=== PATIENT | female | born 1945 | race Caucasian/White ===

== ENCOUNTER 2023-09-27 18:04 | Emergency (ER) | payer MEDICARE, OTHER, SELFPAY ==
[2023-09-27 18:10] VITALS: BP 137/80
[2023-09-27 18:25] LABS: % Basophils 0.9 % (0-2); % Eosinophils 1.9 % (0-6); % Immature Granulocytes 0.3 % (0-0.5); % Lymphocytes 20.7 % (20.5-51.1); % Monocytes 9.7 % (1.7-9.3); % Neutrophils 66.5 % (42.2-75.2); Absolute Basophils 0.1 10^3/uL (0-0.2); Absolute Eosinophils 0.1 10^3/uL (0-0.7); Absolute Lymphocytes 1.4 10^3/uL (1.2-3.4); Absolute Monocytes 0.7 10^3/uL (0.1-0.6); Absolute Neutrophils 4.5 10^3/uL (1.4-6.5); Hematocrit 40.7 % (37.0-47.0); Hemoglobin 13.9 g/dL (12.0-16.0); Mean Corp Hgb Conc. 34.2 g/dL (33.0-37.0); Mean Corpuscular Hgb 27.7 pg (27.0-31.0); Mean Corpuscular Volume 81.1 fL (81.0-99.0); Mean Platelet Volume 9.7 fL (7.4-10.4); Nucleated Red Blood Cells % 0 %; Platelet Count 279 10^3/uL (130-400); Red Blood Cell Count 5.02 10^6/uL (4.20-5.40); Red Cell Dist. Width 13.6 % (11.5-14.5); White Blood Cell Count 6.8 10^3/uL (4.8-10.8)
[2023-09-27 18:40] VITALS: BP 118/55
[2023-09-27 18:46] LABS: ALT (SGPT) 17 U/L (0-35); AST (SGOT) 21 U/L (14-36); Albumin 3.8 g/dl (3.5-5.0); Alkaline Phosphatase 83 U/L (38-126); Blood Urea Nitrogen 21 mg/dl (7-17); Calcium 9.2 mg/dl (8.4-10.2); Carbon Dioxide 24 mmol/L (22-30); Chloride 104 mmol/L (98-107); Glucose 155 mg/dl (70-99); Potassium 4.1 mmol/L (3.5-5.1); Sodium 137 mmol/L (135-145); Total Bilirubin 0.4 mg/dl (0.2-1.3); Total Protein 6.3 g/dl (6.3-8.2); eGFR > 60.00
[2023-09-27 19:00] VITALS: BP 107/63
[2023-09-27 19:08] VITALS: BMI 28.5
--- NOTE | 2023-09-27 19:11 | ED.GENMED ---
History of Present Illness
General
Chief Complaint: Change in Mental Status
Source: patient and spouse
Exam Limitations: dementia
Time Seen by Provider: 09/27/23 18:24
Travel History
Have you had any contact with someone who has COVID-19?: No
Do you have any symptoms of coronavirus? Fever > 100 degrees, chills, cough, shortness of breath, sore throat, loss of taste or smell, muscle aches, or headache?: No
History of Present Illness
History of Present Illness:
This is a 78 year old female that is brought in by her with increased confusion. state that she is not acting normal today. States that she is not answering him when he ask questions and it take her a long time to think about it
before she answers. States that she is [place]. States that there is an activity that they do every Wednesday and she asked him today if they had ever been there before. States that this is worse then normal. Denies any fever, chills, chest pain, SOB,
abd pain, nausea, vomiting, diarrhea, headache, dizziness, urinary burning.
Past History
Past History
ED Past Medical History: Hypercholesterolemia, Hypothyroidism and Other (Osteoarthritis, Alzheimer's, back pain, Hemorrhoids, Ovarian cyst, UTI, Fracture right ankle)
ED Past Surgical History: Orthopedic (ORIF right wrist, ) and Other (Breast cyst removed)
Social History
Tobacco: Non-smoker
Alcohol: None
Drug: None
Personal:
Living: with family
Employment: Retired
Family History
Family History: Other (Noncontributory)
Review of Systems
Review of Systems
All Other Systems: ROS reviewed and negative except as documented in HPI and ROS
Constitutional: Reports fatigue; Denies fever or chills
EENT: Reports no symptoms
Respiratory: Reports no symptoms; Denies cough or trouble breathing
Cardiac: Reports no symptoms; Denies chest pain
ABD/GI: Reports no symptoms; Denies abdominal pain, nausea, vomiting or diarrhea
: Reports no symptoms; Denies dysuria, frequency or urgency
Musculoskeletal: Reports no symptoms
Skin: Reports no symptoms
Neurological: Reports no symptoms; Denies dizzy or headache
Psychiatric: Reports no symptoms
Phy Exam
General Physical Exam
General Presentation: no apparent distress
General age: appears stated age
General Skin: warm and dry
General Habitus: elderly
General Mental: usual mental status (Patient is able to answer questions)
ENT Exam
ENT Exam: TM's normal, pharynx normal and neck supple
Eye Exam
Eye Exam: EOMI
Cardiovascular Exam
Cardiovascular Exam: regular rate/rhythm, no edema and normal peripheral pulses
Pulmonary Exam
Pulmonary Exam: lungs clear, no respiratory distress, no rales, chest non tender, no crackles, no rhonchi, no wheezing and no cough
Gastrointestinal Exam
Gastrointestinal Exam: normal bowel sounds, non tender, soft, no organomegaly, no pulsatile mass and non distended
Musculoskeletal Exam
Musculoskeletal Exam: full ROM and no edema
Skin Exam
Skin Exam: normal color, warm/dry, no rash and no petechia
Psychiatric Exam
Psychiatric Exam: normal mood/affect
Course
Orders/Labs/Results
Orders:
Orders
09/27/23 18:21
CMP [Comprehensive Metabolic Panel] Urgent
Complete Blood Count/With Diff Urgent
09/27/23 19:11
CT Head W/o Iv Contrast Urgent
Comment:
Reason For Exam: Increased confusion
0.9% Sodium Chloride 500 ml [Nss] 500 ml IV BOLUS
09/27/23 19:20
Electrocardiogram (*1) Urgent
Reason for Study: Fatigue / Weakness
EKG- Treatment ONCE
09/27/23 20:17
Straight cath- Treatment ONCE
09/27/23 20:38
Urinalysis Reflex To Culture Urgent
Date Specimen was Collected: 09/27/23
Time Specimen was Collected: 19:13
Urine Microscopic Reflex Cult Urgent
Urine Culture Urgent
MALACHI Source: U
Specimen Description:
Date Specimen was Collected: 09/27/23
Time Specimen was Collected: 19:13
Abnormal Lab Results
09/27/23 09/27/23
18:21 20:38
Absolute Monos (auto) 0.7 H 10^3/uL
(0.1-0.6)
Monocytes % 9.7 H %
(1.7-9.3)
BUN 21 H mg/dl
(7-17)
Glucose 155 H mg/dl
(70-99)
Urine Bilirubin 1+ A
(Negative)
Leukocyte Esterase Rfl Trace A
(Negative)
Urine Bacteria (Reflex) Moderate A
(Negative)
09/27/23 18:21
09/27/23 18:21
Dehydration. Glucose nonfasting. Urine negative for infection.
Vital Signs
Initial and Last Documented VS:
Initial Vital Signs
Temp Pulse Resp BP Pulse Ox
98.1 F 93 18 137/80 94
09/27/23 18:10 09/27/23 18:10 09/27/23 18:10 09/27/23 18:10 09/27/23 18:10
Last Documented Vital Signs
Temp Pulse Resp BP Pulse Ox
98.1 F 79 23 107/63 94
09/27/23 18:10 09/27/23 19:00 09/27/23 19:00 09/27/23 19:00 09/27/23 19:00
MDM/Problems Addressed
Differential Diagnosis Includes:
worsening of Dementia. UTI
MDM/Problems Addressed:
This is a 78 year old female that comes in with . states that today she is just not herself. State that she is slow to answer and doesn't remember things.
will check labs, Urine and give IV fluids. Will also get CT head.
Back into see patient and . Explained that her blood work showed some dehydration. Her urine is negative for infection and her CT of the head is negative for any acute process. Patient to increase her water intake to 8-8oz glasses daily.
Follow up with the family doctor. Explained to that this may just be worsening of the disease process. Return with any concerns.
Chronic conditions affecting care:
Dementia
Acute Exacerbation and/or Progression of Chronic Illness:
Dementia
*Radiology
Radiology exam reviewed: radiology read reviewed (CT head-No acute intracranial abnormality. )
*Pulse Oximetry
Patient hypoxic: no
*Director Of Restaurant Interpretation
Rate: normal
Heart Rate: 68
Rhythm: sinus
*Critical Care Note
Total Time (30-74mins, 75-104mins- exclusive of procedures): Not Applicable
ED Attending Note
-
Portions of this chart may have been created with voice recognition software.� Occasional wrong word or��sound alike� substitutions may have occurred due to the inherent limitations of voice recognition software.
Discharge Plan
Departure
Patient Disposition: Home (Routine Discharge)
Date of Disposition: 09/27/23
Time of Disposition: 21:23
Patient with high blood pressure during this ER visit?: No
Condition: Good
Covid-19: Not Applicable
Discharge Problem:
Dementia
Instructions: Dementia (DC)
Prescriptions:
No Action
multivitamin with folic acid [Tab-A-Kassy] 1 TABLET tablet
1 tab PO DAILY
levothyroxine 50 MCG tablet
50 mcg PO DAILY
naproxen sodium [Aleve] 220 MG tablet
220 mg PO Q8HPRN PRN (Reason: mild pain)
docosahexaenoic acid-epa 1 CAP capsule
1 cap PO DAILY
calcium carbonate-vitamin D3 [Oyster Shell Calcium-Vit D3] 500 MG tablet
1 tab PO DAILY
cholecalciferol (vitamin D3) 1,000 UNITS tablet
1,000 units PO DAILY
biotin 5,000 MCG tablet,disintegrating
5,000 mcg PO DAILY
acetaminophen 325 MG tablet
650 mg PO Q4HPRN PRN (Reason: temp greater than 100.4 F) 0RF
atorvastatin 20 MG tablet
20 mg PO QPM Qty: 30 0RF
aspirin 81 MG tablet,chewable
81 mg PO DAILY 0RF
Referrals:
Richard Hoyt MD [Family Provider] - Call in 1-3 days for appt
Activity Restrictions/Additional Instructions:
As discussed, your blood work shows you are slightly Dehydration. Please increase your water intake to 8-8oz glasses daily. Your CT of the head is negative and your urine is negative for infection. Please follow up with the family doctor for
recheck. This may be just worsening of the disease process. IF YOU HAVE ANY OTHER CONCERNS PLEASE RETURN TO THE EMERGENCY ROOM.
Interventions
Interventions:
*Risk Screen - Suicide Last Done: 09/27/23 18:10
*General Assessment Last Done: 09/27/23 18:10
*Neglect/Abuse Screening Last Done: 09/27/23 18:10
*ED COVID-19 Vaccine History Last Done: 09/27/23 18:10
ED- Neurological Assessment Last Done: 09/27/23 19:02
ED Swallowing Screen Last Done: 09/27/23 19:30
Discharge Date and Time
Print Language: [id number]
[2023-09-27] MEDS: NSS 500 IV (19:29)
[2023-09-27 20:47] LABS: Urine Albumin Negative (Neg - Trace); Urine Bilirubin 1+ (Negative); Urine Character Clear (Clear); Urine Color Yellow; Urine Glucose Negative (Negative); Urine Ketone Negative (Negative); Urine Leukocyte Trace (Negative); Urine Nitrite Negative (Negative); Urine Occult Blood Negative (Negative); Urine Specific Gravity 1.025 (<1.030); Urine Urobilinogen 1+ (Neg - 1+)
[2023-09-27 20:53] LABS: Urine Mucus Few; Urine Squamous Cell 0-2 /LPF (Few)
[2023-09-27 20:54] LABS: Urine Bacteria Moderate (Negative); Urine Red Blood Cell 0-2 /HPF (0-2); Urine White Cell 0-2 /HPF (0-5)
== END 2023-09-27 21:39 | disposition home or self-care (01) ==
LOC: EMR 18:04
PROVIDERS: Clinical Nurse Specialist Family Health; Emergency Medicine; EMERGENCY PHYSICIAN Emergency Medicine; FAMILY PHYSICIAN Family Medicine
DX: G30.9 Alzheimer's disease, unspecified (principal); F02.80 Dementia in other diseases classified elsewhere, unspecified severity, without behavioral disturbance, psychotic disturbance, mood disturbance, and anxiety; E86.0 Dehydration; E78.00 Pure hypercholesterolemia, unspecified; E03.9 Hypothyroidism, unspecified; M19.90 Unspecified osteoarthritis, unspecified site; Z87.440 Personal history of urinary (tract) infections; Z79.82 Long term (current) use of aspirin; Z88.5 Allergy status to narcotic agent; Z88.0 Allergy status to penicillin
CPT/HCPCS: 99284; 96360; 70450; 80053; 81003; 81015; 85025; 87086; 93005

== ENCOUNTER → 2024-11-28 11:25 | Outpatient (REF) | payer MEDICARE, OTHER, SELFPAY ==
[2024-11-28 12:24] LABS: Hematocrit 42.5 % (37.0-47.0); Hemoglobin 13.9 g/dL (12.0-16.0); Mean Corp Hgb Conc. 32.7 g/dL (33.0-37.0); Mean Corpuscular Volume 87.8 fL (81.0-99.0); Nucleated Red Blood Cells % 0 %; Platelet Count 263 10^3/uL (130-400); Red Cell Dist. Width 13.6 % (11.5-14.5)
[2024-11-28 14:34] LABS: ALT (SGPT) 20 U/L (0-35); AST (SGOT) 22 U/L (14-36); Albumin 4.2 g/dl (3.5-5.0); Alkaline Phosphatase 64 U/L (38-126); Blood Urea Nitrogen 14 mg/dl (7-17); Calcium 9.5 mg/dl (8.4-10.2); Carbon Dioxide 30 mmol/L (22-30); Chloride 104 mmol/L (98-107); Glucose 86 mg/dl (70-99); HDL Cholesterol 53 mg/dl; LDL Cholesterol, Calculated 85 mg/dl; Potassium 4.9 mmol/L (3.5-5.1); Sodium 138 mmol/L (135-145); Total Protein 6.6 g/dl (6.3-8.2); Very Low Density Lipoprotein 26 mg/dl (0-30); eGFR > 60.00
[2024-11-28 15:04] LABS: TSH 4.26 uIU/ml (0.47-4.68)
[2024-11-28 15:23] LABS: Vitamin B12 761 pg/ml (239-931)
== END ==
LOC: REG 11:25
PROVIDERS: ATTENDING PHYSICIAN Family Medicine
DX: G45.8 Other transient cerebral ischemic attacks and related syndromes (principal); Z86.73 Personal history of transient ischemic attack (TIA), and cerebral infarction without residual deficits; E03.9 Hypothyroidism, unspecified; F02.80 Dementia in other diseases classified elsewhere, unspecified severity, without behavioral disturbance, psychotic disturbance, mood disturbance, and anxiety; F02.B0 Dementia in other diseases classified elsewhere, moderate, without behavioral disturbance, psychotic disturbance, mood disturbance, and anxiety; E78.00 Pure hypercholesterolemia, unspecified
CPT/HCPCS: 36415; 80053; 80061; 82607; 84439; 84443; 85025